=== PATIENT | male | born 1940 | race Caucasian/White ===

== ENCOUNTER 2018-08-13 10:01 | Emergency (ER) | payer MEDICARE, OTHER ==
[2018-08-13 10:26] LABS: ABG PH 7.33 (7.35-7.45)
[2018-08-13] MEDS ORDERED: ROCURONIUM BROMIDE 10 MG/ML SOL IV ONE ×3 (10:31→10:50)
[2018-08-13] MEDS ORDERED: ETOMIDATE 2 MG/ML SOL IV ONE ×2 (10:31→10:49)
[2018-08-13] MEDS ORDERED: ATROPINE 0.1 MG/ML SOL ONE (10:32)
[2018-08-13] MEDS ORDERED: NOREPINEPHRINE BITARTRATE 4 MG/4 ML SOL IV ONE (10:41)
[2018-08-13] MEDS ORDERED: SODIUM CHLORIDE 0.9% 1000ML 1,000 ML IV ONE (10:45)
[2018-08-13] MEDS ORDERED: ATROPINE 0.1 MG/ML SOL IV ONE ×2 (10:50→10:57)
[2018-08-13] MEDS ORDERED: SODIUM BICARBONATE 8.4%(ADULT) 1 MEQ/ML SOL IV ONE ×3 (11:00→12:42)
[2018-08-13] MEDS ORDERED: EPINEPHRINE HCL 0.1 MG/ML SOL IV PRN (11:00)
[2018-08-13] MEDS ORDERED: CALCIUM CHLORIDE 100 MG/ML SOL IV ONE ×2 (11:07→12:42)
[2018-08-13 11:31] LABS: ABG PH 7.39 (7.35-7.45)
[2018-08-13] MEDS: NOREPINEPHRINE 4 MG/4 ML 4 MG in DEXTROSE 500 ML 500 ML IV SCH ×2 (11:32→12:08)
[2018-08-13 11:45] LABS: APPEARANCE,URINE Clear; BILIRUBIN,URINE NEGATIVE (NEGATIVE); COLOR,URINE Yellow; GLUCOSE, URINE (UA) NEGATIVE (NEGATIVE); KETONES,URINE NEGATIVE (NEGATIVE); LEUKOCYTE ESTERASE ,URINE NEGATIVE (NEGATIVE); NITRATE,URINE NEGATIVE (NEGATIVE); OCCULT BLOOD,URINE NEGATIVE (NEG-TRACE); PH,URINE 6.5
[2018-08-13] MEDS ORDERED: HEPARIN SODIUM 5000 U/ML SOL ONE (11:45)
[2018-08-13 11:52] LABS: RBC,URINE 0-2 (0-3AV/HPF)
[2018-08-13 11:53] LABS: BACTERIA RARE (< 1+); CRYSTALS NEGATIVE (0-3 AVE/HPF); EPITHELIAL CELLS 0-2 (SQUAMOUS)
[2018-08-13] MEDS ORDERED: HEPARIN SODIUM 5000 U/ML 25,000 U in DEXTROSE 250 ML 250 ML IV PRN (11:53)
[2018-08-13 11:58] LABS: INR 1.08 (0.86-1.12)
[2018-08-13 11:59] LABS: ALBUMIN 2.4 gm/dl (3.4-5.0); BILIRUBIN,TOTAL 1.2 mg/dl (0.2-1.0); CALCIUM 8.5 mg/dl (8.5-10.1); CREATININE 0.83 mg/dl (0.80-1.30); TOTAL PROTEIN 5.5 gm/dl (6.4-8.2); TROP I 0.324 ng/ml (0.000-0.056)
[2018-08-13 12:12] VITALS: RESP 16
[2018-08-13] MEDS ORDERED: SODIUM CHLORIDE 0.9% 1000 ML SOL IV SCH (12:15)
[2018-08-13] MEDS ORDERED: EPINEPHRINE 1:10,000 PREFILL 0.1 MG/ML SOL ONE (12:43)
[2018-08-13 13:28] LABS: BASOPHILS % (AUTO) 1 % (0-3); EOSINOPHILS % (AUTO) 4 % (0-9); HEMATOCRIT 31 % (39-53); HEMOGLOBIN 9.9 gm/dl (13.5-17.7); LYMPHOCYTES % (AUTO) 26.8 % (10-50); MEAN CORPUSCULAR HEMOGLOBIN 29.7 pg (27.0-32.0); MEAN CORPUSCULAR HGB CONC 31.9 gm/dl (32.0-36.0); MEAN CORPUSCULAR VOLUME 93 fL (80-100); MONOCYTES % (AUTO) 8.3 % (0-12); NEUTROPHILS % (AUTO) 60.2 % (37-80)
[2018-08-13 13:34] VITALS: BP 140/83; PULSE 59; O2SAT 93
[2018-08-13 15:16] VITALS: TEMP 90
== END 2018-08-13 12:40 | disposition short-term general hospital (02) | DRG 298 ==
LOC: ED 10:01
DX: I46.9 Cardiac arrest, cause unspecified (principal); I10 Essential (primary) hypertension; R68.0 Hypothermia, not associated with low environmental temperature
CPT/HCPCS: 31500; 36415; 36600; 71045; 80053; 81001; 82550; 82803; 84484; 85025; 85610; 87040; 93005; 96365; 96366; 96374; 96375; 99291; J0461; J1644; A9270-GY; J3490